=== PATIENT | female | born 1940 | race Caucasian/White ===

== ENCOUNTER 2016-10-04 22:07 | Emergency (ER) | payer OTHER ==
[~2016-10-04] VITALS: Ht 162.6 cm; Wt 77.3 kg
[~2016-10-04 22:07] MED LIST: CALCIUM CITRAT1 EAC3 PO; FENOFIBRATE48 MG PO; MIRTAZAPINE7.5 MG PO; SUPER B-50 COM1 EACH PO; VITAMIN D31000 UNIT PO
[2016-10-04 22:52] LABS: MCH 31.4 PG (29.0-34.0); MCHC 34.4 G/DL (30.0-36.0); MCV 91.1 FL (83-99); MEAN PLAT.VOLUME 9.8 uM^3 (9.5-12.4); PLATELET COUNT 222 K/uL (156-360); RBC DIS.WIDTH-CV 13.2 % (11.8-14.6); RBC DIS.WIDTH-SD 44.1 % (39-53); RED BLOOD COUNT 4.72 M/uL (3.80-5.20); WHITE BLOOD COUNT 11.1 K/uL (4.1-10.2)
[2016-10-04 23:11] LABS: CHLORIDE 107 mEq/L (99-109); POTASSIUM 3.9 mEq/L (3.7-5.4); SODIUM 141 mEq/L (136-147)
[2016-10-04 23:14] LABS: ANION GAP 12 MEQ/L (2-14)
[2016-10-04 23:16] LABS: GFR ESTIMATE (CALCULATED) > 59 mL/min/
[2016-10-04 23:17] LABS: UREA NITROGEN (BUN) 16 mg/dL (9-23)
[2016-10-04 23:24] LABS: TROP-I INTERPRETATION NEGATIVE; TROPONIN-I < 0.01 ng/mL (0.0-0.30)
[2016-10-04 23:54] LABS: ADD MIUA? YES; BILIRUBIN NEGATIVE; BLOOD NEGATIVE; COLOR STRAW ((YELLOW)); GLUCOSE (STRIP) NEGATIVE; KETONES NEGATIVE; LEUKOCYTES MODERATE; NITRITE NEGATIVE; PROTEIN (STRIP) NEGATIVE; SPECIFIC GRAVITY 1.006 (1.000-1.030); UROBILINOGEN 0.2 MG/DL (0.2-1.0)
[2016-10-05 00:11] LABS: BACTERIA NONE SEEN /HPF; EPITHELIAL CELLS RARE /HPF; MUCUS NONE SEEN /LPF; RED BLOOD CELLS 0-5 /HPF (0-5); UCUL ADDED? NO; WHITE BLOOD CELLS 0-5 /HPF (0-5)
[2016-10-05 00:22] LABS: GLUCOSE 102 mg/dL (70-99)
[2016-10-05] MEDS ORDERED: CIPRO500 MG PO (00:23)
[2016-10-05] MEDS ORDERED: FLAGYL500 MG PO (00:23)
[2016-10-05 00:45] VITALS: BP 119/68
[2016-10-05 12:51] LABS: POC NON-PRINT COM 1 ND
== END 2016-10-05 00:47 | disposition home or self-care (01) ==
LOC: EME 22:07
PROVIDERS: Physician Assistant
DX: K52.9 Noninfective gastroenteritis and colitis, unspecified (principal); N83.209 Unspecified ovarian cyst, unspecified side; Z85.3 Personal history of malignant neoplasm of breast
CPT/HCPCS: 74177; 80048; 81003; 82272; 84484; 85027; 86900; 86901; 93005; 99281; 99285